=== PATIENT | female | born 1980 | race African-American/Black ===

== ENCOUNTER 2017-05-06 12:16 | Inpatient (IN) ==
[2017-05-06] MEDS ORDERED: hydrALAZINE 20 MG/1 ML VIAL ONE (13:11)
--- NOTE | 2017-05-06 13:12 | Emergency Department Note ---
Efrem Andre Gwan, am scribing for, and in the presence of, Jorden Munguia MD 12:29 . Nilda Andre James D, MD, personally performed the services described in this documentation, ascribed by Deborah Topete in my presence, and it is both accurate and complete 312 . 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 states had a nosebleed and nausea and light makes headache worse Mode of Arrival: Wheelchair Limitations: No Limitations Source: Patient, Old Records Reviewed, RN Notes Reviewed - History of Present Illness HPI Narrative: Patient is a 36 y/o female who presents to the ED with a c/o CARTER with an onset yesterday, worse today about 1 hour prior to admission. Patient stated that she has also had epistaxis, nausea and photophobia. Patient complains of her right occipital headache which feels like "pressure". Patient denies any upper or lower extremity numbness or weakness. Onset (ago): hour(s) Consistency: constant Severity: moderate Date of Last Menstrual Period: hyst Allergies/Adverse Reactions: Allergies Allergy/AdvReac Type Severity Reaction Status Date / Time Cefaclor [From Ceclor] Allergy Intermediate Swelling Verified 12/30/16 19:03 of Lip/Tongue/Throat ketorolac [From Toradol] Allergy Intermediate Swelling Verified 12/30/16 19:03 of Lip/Tongue/Throat nalbuphine [From Nubain] Allergy Intermediate Swelling Verified 12/30/16 19:03 of Lip/Tongue/Throat Penicillins Allergy Intermediate Swelling Verified 12/30/16 19:03 of Lip/Tongue/Throat Sulfa (Sulfonamide Allergy Intermediate Swelling Verified 12/30/16 19:03 Antibiotics) of Lip/Tongue/Throat Home Medications: Home Medications Medication Instructions Recorded Confirmed Type Aspirin EC Tab 81 mg PO DAILY 12/30/16 05/06/17 History Folic Acid Tab 1 mg PO DAILY 12/30/16 05/06/17 History Gabapentin 100 mg PO DAILY 12/30/16 05/06/17 History Insulin Regular [HumuLIN R] 20 unit SUBCUT DAILY 12/30/16 05/06/17 History Oxycodone HCl/Acetaminophen 1 each PO QID 12/30/16 05/06/17 History [Percocet 10-325 mg Tablet] ALPRAZolam [Xanax] 1 mg PO BID 05/06/17 05/06/17 History Clindamycin HCl [Clindamycin Cap] 300 mg PO TID 05/06/17 05/06/17 History Exenatide Microspheres [Bydureon 2 mg SUBCUT FR 05/06/17 05/06/17 History Pen] Furosemide Tab [Lasix Tab] 40 mg PO TID 05/06/17 05/06/17 History Hydrocodone/Acetaminophen [Lortab 1 each PO TID 05/06/17 05/06/17 History 10-325 mg Tablet] Insulin NPH Hum/Reg Insulin Hm 60 unit SUBCUT BID 05/06/17 05/06/17 History [NovoLIN 70/30] Iron,Carbonyl/Ascorbic Acid 1 each PO DAILY 05/06/17 05/06/17 History [Icar-C Tablet] Liraglutide [Victoza 2-Louis] 20 ml SUBCUT QID 05/06/17 05/06/17 History Lisdexamfetamine Dimesylate 30 mg PO DAILY 05/06/17 05/06/17 History [Vyvanse] Methylphenidate HCl [Ritalin] 20 mg PO BID 05/06/17 05/06/17 History Metoprolol Tartrate 50 mg PO BID 05/06/17 05/06/17 History Nitroglycerin 0.2 mg/Hr Patch 1 patch TRANSDERM DAILY 05/06/17 05/06/17 History [Nitro-Dur 0.2 mg/hr Patch] Phentermine HCl [Adipex-P] 37.5 mg PO DAILY 05/06/17 05/06/17 History amLODIPine [Norvasc] 10 mg PO DAILY 05/06/17 05/06/17 History Review of System - Review of System 12 point system: reviewed and no additional remarkable complaints except as stated - Review of System Eyes: Present: as per HPI, other (photophobia). Absent: discharge, pain Head/Ears/Nose/Throat: Present: see HPI, epistaxis. Absent: earache Gastrointestinal: Present: as per HPI, nausea. Absent: abdominal pain, diarrhea Neurological: Present: as per HPI, headache. Absent: weakness, confusion Medical,Surgical,& Family Hx - Medical History Cardio: History of: Hypertension Endocrine: History of: Diabetes Mellitus (IDDM) - Social History Smoking Status: Never smoker Frequency of Alcohol Use: None Type of Drug Use: None Exam Physical Examination: GENERAL: This is a well-nourished, well-developed female in no apparent distress. VITAL SIGNS: HEENT: Head is normocephalic and atraumatic. Pupils are equally round and reactive to light. Extraocular movement are intact. Oropharynx is benign with moist mucous membranes. NECK: Neck is soft and supple without tenderness. There are no masses. There is no lymphadenopathy. LUNGS: Lungs are clear to auscultation bilaterally. Chest rises symmetrically. There is no chest wall tenderness. CV: Heart is regular rate and rhythm without murmurs, rubs, or gallops. ABDOMEN: Abdomen is soft, non-tender to palpation. There are no abnormal masses palpated. There is no organomegaly. Bowel sounds are present and active. SKIN: Skin is warm and dry. No rash. EXTREMITIES: Patient has full range of motion without tenderness. There is no pedal edema. NEUROLOGIC: Awake, alert, and oriented x4. Cranial nerves II through XII are grossly intact. There are no motorsensory deficits. Vital Signs: Vital Signs Temperature 98.3 F 05/06/17 12:27 Pulse Rate 93 H 05/06/17 13:30 Respiratory Rate 16 05/06/17 13:30 Blood Pressure 189/102 05/06/17 13:30 O2 Sat by Pulse Oximetry 100 05/06/17 13:30 Results - Diagnostic Findings Procedure: CT: report reviewed by me (CT head: No acute intracranial lesion or hemorrhage.) Disposition Clinical Impression: Headache, Essential hypertension, Medical non-compliance Case discussed with: patient Condition: Stable
[2017-05-06] MEDS ORDERED: hydrALAZINE 20 MG/1 ML VIAL IV STA ×3 (13:27→14:56)
--- NOTE | 2017-05-06 13:40 | CT Report ---
CT head/brain wo con Indication: Headache Comparison: None. Technique: CT of the brain was performed without administration of intravenous contrast. The CT examination was performed using one or more of the following dose reduction techniques: Automatic exposure control, adjustment of the mA and kV according to patient size, use of acute or iterative reconstruction techniques. Findings: There is no evidence of acute intracranial hemorrhage, mass, or infarction. Ventricles appear within normal limits. The basal cisterns are patent. No significant abnormality is demonstrated to involve the posterior fossa or cerebellum. Orbits and globes demonstrate no evidence of significant pathology. The paranasal sinuses are clear. No significant abnormality is demonstrated to involve the mastoid air cells. The calvarium and overlying soft tissues demonstrate no evidence of acute pathology. Impression: 1. No CT evidence of acute intracranial pathology. 05/06/2017 1:37 PM PROCEDURE INTERPRETED AT [facility] DEPARTMENT OF RADIOLOGY Final Report Signed by: Dr. Carlos Christian
[2017-05-06] MEDS ORDERED: KETOROLAC 30 MG/1 ML VIAL ONE (14:38)
[2017-05-06] MEDS ORDERED: KETOROLAC 30 MG/1 ML VIAL IV STA (14:56)
[2017-05-06] MEDS ORDERED: LORazepam 2 MG/1 ML VIAL ONE (15:49)
[2017-05-06 16:37] LABS: Barbiturates Screen,Urine Negative (Negative); Benzodiazepines Screen,Urine Negative (Negative); Cannabinoid Screen,Urine Negative (Negative); Opiate Screen,Urine Negative (Negative); Phencyclidine Screen,Urine Negative (Negative)
--- NOTE | 2017-05-06 17:04 | Hospitalist History & Physical ---
Assessment and Plan (1) Essential hypertension Status: Acute Assessment and plan: Restart home medications. As needed antihypertensive agents. Current Visit: Yes (2) Headache Status: Acute Assessment and plan: Treat blood pressure. CT head negative. Give pt ibufopen. Current Visit: Yes (3) Medical non-compliance Status: Chronic Assessment and plan: Educate patient on importance of taking medications. Current Visit: Yes (4) Bipolar 1 disorder Status: Chronic Current Visit: Yes History of Present Illness Chief complaint: headache History of present illness: Ms. Canas is a 36 year old black female presented to the ED today with complaints of a headache. She states that the headache began 3 days ago and has progressively worsened. Patient states that the headache today came on suddenly. She reports "I felt like my eyes were about to pop out of my head". She also reports blood "shooting out" of her nose. Pt. states that this was witnessed by her . Pt. also reported nausea and vomiting. On examination , pt is tearful and reports social issues have her stressed. She points to the occipital area when asked where her head hurts. She reports the pain is 8/10. Pt. denies any other complaints at this time. Pt's case has been discussed with Dr. Mueller and Dr. Munguia. Pt. will be admitted to the hospitalist service for further evaluation and treatment. Home Medications Medication Instructions Recorded Confirmed Type Aspirin EC Tab 81 mg PO DAILY 12/30/16 05/06/17 History Folic Acid Tab 1 mg PO DAILY 12/30/16 05/06/17 History Gabapentin 100 mg PO DAILY 12/30/16 05/06/17 History Insulin Regular [HumuLIN R] 20 unit SUBCUT DAILY 12/30/16 05/06/17 History Oxycodone HCl/Acetaminophen 1 each PO QID 12/30/16 05/06/17 History [Percocet 10-325 mg Tablet] ALPRAZolam [Xanax] 1 mg PO BID 05/06/17 05/06/17 History Clindamycin HCl [Clindamycin Cap] 300 mg PO TID 05/06/17 05/06/17 History Exenatide Microspheres [Bydureon 2 mg SUBCUT FR 05/06/17 05/06/17 History Pen] Furosemide Tab [Lasix Tab] 40 mg PO TID 05/06/17 05/06/17 History Hydrocodone/Acetaminophen [Lortab 1 each PO TID 05/06/17 05/06/17 History 10-325 mg Tablet] Insulin NPH Hum/Reg Insulin Hm 60 unit SUBCUT BID 05/06/17 05/06/17 History [NovoLIN 70/30] Iron,Carbonyl/Ascorbic Acid 1 each PO DAILY 05/06/17 05/06/17 History [Icar-C Tablet] Liraglutide [Victoza 2-Louis] 20 ml SUBCUT QID 05/06/17 05/06/17 History Lisdexamfetamine Dimesylate 30 mg PO DAILY 05/06/17 05/06/17 History [Vyvanse] Methylphenidate HCl [Ritalin] 20 mg PO BID 05/06/17 05/06/17 History Metoprolol Tartrate 50 mg PO BID 05/06/17 05/06/17 History Nitroglycerin 0.2 mg/Hr Patch 1 patch TRANSDERM DAILY 05/06/17 05/06/17 History [Nitro-Dur 0.2 mg/hr Patch] Phentermine HCl [Adipex-P] 37.5 mg PO DAILY 05/06/17 05/06/17 History amLODIPine [Norvasc] 10 mg PO DAILY 05/06/17 05/06/17 History Allergies Allergy/AdvReac Type Severity Reaction Status Date / Time Cefaclor [From Ceclor] Allergy Intermediate Swelling Verified 12/30/16 19:03 of Lip/Tongue/Throat ketorolac [From Toradol] Allergy Intermediate Swelling Verified 12/30/16 19:03 of Lip/Tongue/Throat nalbuphine [From Nubain] Allergy Intermediate Swelling Verified 12/30/16 19:03 of Lip/Tongue/Throat Penicillins Allergy Intermediate Swelling Verified 12/30/16 19:03 of Lip/Tongue/Throat Sulfa (Sulfonamide Allergy Intermediate Swelling Verified 12/30/16 19:03 Antibiotics) of Lip/Tongue/Throat Medical,Surgical,& Family Hx - Medical History Cardio: History of: Hypertension Endocrine: History of: Diabetes Mellitus (IDDM) - Social History Smoking Status: Never smoker Frequency of Alcohol Use: None Type of Drug Use: None Marital Status: Lives With:: Parent Functional capacity: independent ambulation - Constitutional Constitutional: Absent: chills, fever(s) - EENT Eyes: Present: loss of vision Ears: Absent: decreased hearing Nose, mouth and throat: Present: epistaxis, headache(s) - Cardiovascular Cardiovascular: Absent: chest pain at rest, edema - Respiratory Respiratory: Absent: cough - Gastrointestinal Gastrointestinal: Absent: abdominal pain, nausea, vomiting - Genitourinary Genitourinary: Absent: difficulty urinating - Neurological Neurological: Absent: confusion, dizziness - Psychiatric Psychiatric: Present: anxiety, depression, difficulty concentrating Exam - Constitutional Vitals: Period Temp Pulse Resp BP Sys/Acevedo Pulse Ox Last 24 Hr 98.3 F-98.3 F 90-93 15-22 176-195/102-155 96-100 General appearance: no acute distress, morbidly obese, disheveled - Head Head exam: Present: normal inspection, normocephalic - Eye Eye exam: Present: EOMI. Absent: scleral icterus Pupils: Present: CAROLYNN - ENT ENT exam: Present: normal exam - Neck Neck exam: Present: normal inspection - Respiratory Respiratory exam: Present: clear to auscultation bilaterally. Absent: wheezes - Cardiovascular Cardiovascular exam: Present: tachycardia - GI/Abdominal GI/Abdominal exam: Present: normal bowel sounds, soft. Absent: tenderness - Extremities Exam Extremities exam: Present: normal capillary refill, full ROM. Absent: edema - Neurological Exam Neurological exam: Present: alert, oriented X3 - Psychiatric Psychiatric exam: Present: normal affect, normal mood - Skin Skin exam: Present: normal color, warm, dry Results - Labs CBC & BMP: 05/06/17 13:24 05/06/17 13:24 Lab Results: I have reviewed the past 24 hour labs
[2017-05-06 17:24] LABS: Basophils % 0.4 % (0.0-0.8); Eosinophils % 0.4 % (0.00-10.9); Hematocrit 41.4 VOL% (35.7-47.0); Hemoglobin 13.6 GM/DL (12.0-16.0); Immature Granulocytes % 0.4 %; Immature Granulocytes Absolute 0.04 #; Lymphocytes # 2.5 10*3/uL (1.4-4.0); Mean Corpuscular HGB Conc 32.9 GM/DL (32-36); Mean Corpuscular Hemoglobin 26 PG (27-34); Mean Corpuscular Volume 79.8 FL (87-102); Mean Platelet Volume 9.4 FL (9.6-12.0); Monocytes # 0.5 10*3/uL (0.11-0.8); Monocytes % 5.3 % (1.7-12.7); Neutrophils # 5.9 10*3/uL (1.4-7.4); Neutrophils % 65.5 % (38.7-73.9); Platelet Count 281 T/CUMM (130-400); Red Blood Count 5.19 MC/CUMM (3.8-5.5); Red Cell Distribution Width 13.3 % (9.3-17.3)
[2017-05-06 17:44] LABS: Calcium 8.7 MG/DL (8.5-10.1); Osmolality,Calculated 281.3 MOS/KG (273-304); Potassium 3.7 MMOL/L (3.5-5.1)
[2017-05-06] MEDS ORDERED: IBUPROFEN 800 MG TABLET ONE (18:14)
[2017-05-06] MEDS ORDERED: IBUPROFEN 800 MG TABLET PO STA (18:44)
[2017-05-06] MEDS ORDERED: LABETALOL 20 MG/4 ML SYRINGE IV PRN (19:00)
[2017-05-06] MEDS: METOPROLOL TARTRATE 50 MG TABLET PO SCH (20:04)
[2017-05-06] MEDS: ENOXAPARIN 40 MG/0.4 ML SYRINGE SUBCUT SCH (20:04)
[2017-05-07 05:23] LABS: Basophils # 0.1 10*3/uL (0.0-0.2); Basophils % 0.6 % (0.0-0.8); Eosinophils # 0.1 10*3/uL (0.0-0.87); Eosinophils % 0.7 % (0.00-10.9); Hematocrit 41.2 VOL% (35.7-47.0); Hemoglobin 13.5 GM/DL (12.0-16.0); Immature Granulocytes % 0.4 %; Immature Granulocytes Absolute 0.03 #; Lymphocytes # 2.1 10*3/uL (1.4-4.0); Lymphocytes % 24.7 % (21.3-54.2); Mean Corpuscular HGB Conc 32.8 GM/DL (32-36); Mean Corpuscular Hemoglobin 26 PG (27-34); Mean Corpuscular Volume 79.8 FL (87-102); Mean Platelet Volume 9.2 FL (9.6-12.0); Monocytes # 0.4 10*3/uL (0.11-0.8); Monocytes % 4.1 % (1.7-12.7); Neutrophils # 5.9 10*3/uL (1.4-7.4); Neutrophils % 69.5 % (38.7-73.9); Platelet Count 279 T/CUMM (130-400); Red Blood Count 5.16 MC/CUMM (3.8-5.5); Red Cell Distribution Width 13.4 % (9.3-17.3); White Blood Count 8.5 T/CUMM (4-12)
[2017-05-07 06:10] LABS: Calcium 8.4 MG/DL (8.5-10.1); Magnesium 2.6 MG/DL (1.8-2.4); Osmolality,Calculated 279.4 MOS/KG (273-304); Potassium 4.2 MMOL/L (3.5-5.1); Risk Ratio 3.48; Thyroid Stimulating Hormone 0.726 uIU/ml (0.358-3.74)
[2017-05-07] MEDS ORDERED: NIFEdipine 10 MG CAPSULE PO PRN (09:04)
[2017-05-07] MEDS ORDERED: HEPARIN LOCK FLUSH 500 UNIT/5 ML SYRINGE IV ONE (09:13)
[2017-05-07] MEDS: amLODIPine 10 MG TABLET PO SCH (09:20)
[2017-05-07] MEDS: FOLIC ACID 1 MG TABLET PO SCH (09:21)
[2017-05-07] MEDS: ASPIRIN EC 81 MG TABLET PO SCH (09:21)
[2017-05-07] MEDS: METOPROLOL TARTRATE 50 MG TABLET PO SCH ×2 (09:21→20:19)
[2017-05-07] MEDS: VYVANSE 30 MG PO SCH (09:22)
--- NOTE | 2017-05-07 13:39 | Hospitalist Progress Note ---
Assessment and Plan (1) Headache Status: Acute Assessment and plan: The patient continues observation for headache and hyperal pressure. Urine for metanephrines has been requested. We will treat the blood pressure as required with oral medications. Current Visit: Yes Qualifiers: Headache type: tension-type Headache chronicity pattern: acute headache Intractability: intractable Qualified Code(s): G44.201 - Tension-type headache , unspecified, intractable (2) Essential hypertension Status: Acute Current Visit: Yes (3) Bipolar 1 disorder Status: Chronic Current Visit: Yes Hospitalist: Subjective Interval history: This is a 36-year-old lady with history of bipolar disorder taking Ritalin. The patient arrives with complaints of headache and elevated blood pressure which shows blood pressure greater than 200/110. The patient also has some normal blood pressures. This raises the possibility of a pheochromocytoma. The patient is now being observed for blood pressure and we are going to start 24-hour urine collection to test for metanephrines. Is difficult to understand if the high blood pressure episodes because the patient to have headache or the other way around. Exam - Constitutional Vitals: Period Temp Pulse Resp BP Sys/Acevedo Pulse Ox Last 24 Hr 97.0 F-98.4 F 65-121 19-25 120-198/76-143 92-100 General appearance: mild distress - Respiratory Respiratory exam: Present: clear to auscultation bilaterally - Cardiovascular Cardiovascular exam: Present: regular rate and rhythm - GI/Abdominal GI/Abdominal exam: Present: normal bowel sounds Results - Labs CBC & BMP: 05/07/17 04:00 05/07/17 04:00 Lab Results: I have reviewed the past 24 hour labs
[2017-05-07] MEDS: PROMETHAZINE 25 MG/1 ML VIAL IM PRN (14:00)
[2017-05-07] MEDS: METHYLPHENIDATE 5 MG TABLET PO SCH ×2 (14:38→20:20)
[2017-05-07] MEDS: ONDANSETRON 4 MG/2 ML VIAL IV PRN (15:43)
[2017-05-07] MEDS: ENOXAPARIN 40 MG/0.4 ML SYRINGE SUBCUT SCH (20:21)
[2017-05-08 05:22] LABS: Basophils # 0.1 10*3/uL (0.0-0.2); Basophils % 0.8 % (0.0-0.8); Eosinophils # 0.1 10*3/uL (0.0-0.87); Eosinophils % 1.4 % (0.00-10.9); Hematocrit 38.2 VOL% (35.7-47.0); Hemoglobin 12.2 GM/DL (12.0-16.0); Immature Granulocytes % 0.7 %; Immature Granulocytes Absolute 0.05 #; Lymphocytes # 2.8 10*3/uL (1.4-4.0); Lymphocytes % 38.9 % (21.3-54.2); Mean Corpuscular HGB Conc 31.9 GM/DL (32-36); Mean Corpuscular Hemoglobin 26 PG (27-34); Mean Corpuscular Volume 81.3 FL (87-102); Mean Platelet Volume 9.6 FL (9.6-12.0); Monocytes # 0.4 10*3/uL (0.11-0.8); Monocytes % 4.8 % (1.7-12.7); Neutrophils # 3.9 10*3/uL (1.4-7.4); Neutrophils % 53.4 % (38.7-73.9); Platelet Count 269 T/CUMM (130-400); Red Cell Distribution Width 13.4 % (9.3-17.3); White Blood Count 7.3 T/CUMM (4-12)
[2017-05-08 05:59] LABS: Blood Urea Nitrogen 28 MG/DL (7-18); Calcium 8.3 MG/DL (8.5-10.1); Glucose 86 MG/DL (74-106); Magnesium 2.2 MG/DL (1.8-2.4); Osmolality,Calculated 285.3 MOS/KG (273-304); Potassium 4.1 MMOL/L (3.5-5.1); Sodium 141 MMOL/L (136-145); Troponin I Only < 0.015 NG/ML (0.00-0.045)
[2017-05-08] MEDS ORDERED: HEPARIN LOCK FLUSH 500 UNIT/5 ML SYRINGE IV ONE (08:37)
--- NOTE | 2017-05-08 08:59 | Physician Query Form ---
CLICK EDIT DOCUMENT TO SELECT QUERY ANSWER --> OK --> SIGN Nova Jenkins RN Clinical Coat Baster W) [phone] (f) [phone] [email or web address]: Make your selection(s) from the choices in EACH section by typing an "x" and enter comments in the comment section. Please use your independent medical judgment in providing your response. This request does not imply that any particular answer is desired or expected. CLINCAL INDICATORS: (Providers should not edit this section) Based on documentation of "acute essential hypertension. We are going to put her on her home meds and monitor her blood pressure". Pt. takes Norvasc as home medication. Blood pressure on admission of 195/122. Note: Hypertensive crises can present as hypertensive urgency or hypertensive emergency. Clarify which, if any of the following, is a more accurate diagnosis reflecting the type and acuity of the documented hypertension: TYPE: ( X) Hypertensive Urgency ( ) Hypertensive Emergency ( ) Uncontrolled chronic hypertension at baseline ( ) Other, please specify: ( ) Clinically unable to determine COMMENTS: Criteria Source - Up to Date (This topic last updated: Dec 06, 2015) HYPERTENSIVE URGENCY: Severe hypertension (usually a diastolic blood pressure above 120 mmHg) in asymptomatic patients is referred to as hypertensive urgency. There is no proven benefit from rapid reduction in blood pressure in asymptomatic patients who have no evidence of acute end-organ damage and are at little short-term risk. HYPERTENSIVE EMERGENCY: Severe hypertension (usually a diastolic blood pressure above 120 mmHg) with evidence of acute end-organ damage is defined as a hypertensive emergency. A hypertensive emergency can be life threatening and requires immediate treatment, usually with parenteral medications in a monitored setting. PLEASE ALSO DOCUMENT RESPONSE IN PROGRESS NOTES AND/OR DISCHARGE SUMMARY Use of terms such as suspected, likely, or probable (associated with a specific diagnosis that is being evaluated, monitored, or treated as if it exists) are acceptable and can be restated in the discharge summary if not ruled out. MTDD
[2017-05-08] MEDS: ONDANSETRON 4 MG/2 ML VIAL IV PRN ×3 (09:17→16:51)
[2017-05-08] MEDS: METOPROLOL TARTRATE 50 MG TABLET PO SCH ×2 (09:23→21:00)
[2017-05-08] MEDS: FOLIC ACID 1 MG TABLET PO SCH (09:23)
[2017-05-08] MEDS: amLODIPine 10 MG TABLET PO SCH (09:23)
[2017-05-08] MEDS: ASPIRIN EC 81 MG TABLET PO SCH (09:23)
[2017-05-08] MEDS: METHYLPHENIDATE 5 MG TABLET PO SCH ×2 (09:33→20:59)
--- NOTE | 2017-05-08 19:13 | Hospitalist Progress Note ---
Hospitalist: Subjective Interval history: Patient has some headache today. Exam - Constitutional Vitals: Period Temp Pulse Resp BP Sys/Acevedo Pulse Ox Last 24 Hr 95.6 F-97.6 F 49-66 12-20 98-145/53-89 96-98 Exam: General: No Acute Distress HEENT: Normocephalic, atraumatic, Extra ocular movements intact Neck: Supple, No JVD Chest: Clear to auscultation B/L CV: S1 + S2 audible without murmur, gallop or rub Abd: soft, NT, Non-distended, BS + Ext: No edema Skin: No purpura, bruising or rash Rheumatologic: No Joint deformities Neurologic: Strength 5/5 all extremities, no gross sensory deficits Results - Labs CBC & BMP: 05/08/17 03:40 05/08/17 03:40 - Impressions Assessment and Plan: (1) Headache Status: Acute Assessment and plan: Check MRI of the brain due to persistent headache Current Visit: Yes Qualifiers: Headache type: tension-type Headache chronicity pattern: acute headache Intractability: intractable Qualified Code(s): G44.201 - Tension-type headache , unspecified, intractable (2) Essential hypertension Status: Acute Current Visit: Yes 24 hour urine collection for metanephrines was completed on May 08, will follow up on the results (3) Bipolar 1 disorder Status: Chronic Current Visit: Yes
[2017-05-08] MEDS: VYVANSE 30 MG PO SCH (19:35)
[2017-05-08] MEDS: ENOXAPARIN 40 MG/0.4 ML SYRINGE SUBCUT SCH (21:02)
[2017-05-08] MEDS: PROMETHAZINE 25 MG/1 ML VIAL IM PRN (23:48)
[2017-05-09] MEDS: METOPROLOL TARTRATE 50 MG TABLET PO SCH ×2 (09:00→20:47)
[2017-05-09] MEDS: ASPIRIN EC 81 MG TABLET PO SCH (09:00)
[2017-05-09] MEDS: amLODIPine 10 MG TABLET PO SCH (09:00)
[2017-05-09] MEDS: FOLIC ACID 1 MG TABLET PO SCH (09:00)
[2017-05-09] MEDS: VYVANSE 30 MG PO SCH (09:01)
[2017-05-09] MEDS: METHYLPHENIDATE 5 MG TABLET PO SCH ×2 (09:01→20:47)
--- NOTE | 2017-05-09 11:12 | Magnetic Resonance Report ---
Exam: MR head/brain w and wo con Date: 05/09/2017 5:07 PM Comparison: CT brain 05/06/2017 Indication: Persistent headache history of seizures Technical: 1.5 Yanelis magnet Axial T1 pre-and postcontrast, ADC, DWI, FLAIR, gradient echo and FSE T2 Sagittal T1 precontrast, Coronal postcontrast T1 Contrast: 20 cc Dotarem Findings: Exam reveals no acute ADC/ diffusion imaging abnormality. The brainstem exhibit normal signal characteristics. Slight low-lying cerebellar tonsil suggest minimal cerebellar ectopia. No other abnormalities in the cerebellum noted. The cerebral hemispheres exhibit normal signal characteristics. The corpus callosum is unremarkable. No contrast enhancing lesions are present. The seventh and eighth cranial nerves and cerebral pontine angles are intact. The pituitary gland, infundibulum and optic chiasm are intact. The paranasal sinuses exhibit minimal inflammation in the ethmoid sinuses the maxillary sphenoid frontal sinuses are unremarkable.. The mastoid sinuses are unremarkable. The globes and intra-and extraconal spaces are unremarkable. Impression: 1. Findings suggest minimal cerebellar ectopia. Question Chiari I 2. No obvious syrinx or myomalacia change in the proximal cord 2. No acute hemorrhage, infarction or mass effect 3. Minimal inflammation ethmoid air cells. PROCEDURE INTERPRETED AT [facility] DEPARTMENT OF RADIOLOGY Final Report Signed by: Dr. Jose Hammond
[2017-05-09] MEDS: PROMETHAZINE 25 MG/1 ML VIAL IM PRN (15:00)
[2017-05-09] MEDS: HEPARIN LOCK FLUSH 500 UNIT/5 ML SYRINGE IV SCH (16:25)
--- NOTE | 2017-05-09 16:55 | Hospitalist Progress Note ---
Hospitalist: Subjective Interval history: Has some headache but better than yesterday. Exam - Constitutional Vitals: Period Temp Pulse Resp BP Sys/Acevedo Pulse Ox Last 24 Hr 96.2 F-98 F 51-70 16-20 97-134/53-76 95-99 Exam: General: No Acute Distress HEENT: Normocephalic, atraumatic, Extra ocular movements intact Neck: Supple, No JVD Chest: Clear to auscultation B/L CV: S1 + S2 audible without murmur, gallop or rub Abd: soft, NT, Non-distended, BS + Ext: No edema Skin: No purpura, bruising or rash Rheumatologic: No Joint deformities Neurologic: Strength 5/5 all extremities, no gross sensory deficits Results - Labs CBC & BMP: 05/08/17 03:40 05/08/17 03:40 - Impressions Assessment and Plan: (1) Headache Status: Acute Assessment and plan: MRI of the brain not showing any gross abnormalities to explain her headache. This is most likely tension type headache, however it is improving with current treatment continue. Current Visit: Yes Qualifiers: Headache type: tension-type Headache chronicity pattern: acute headache Intractability: intractable Qualified Code(s): G44.201 - Tension-type headache , unspecified, intractable (2) Essential hypertension Status: Acute Current Visit: Yes 24 hour urine collection for metanephrines was completed on May 08, will follow up on the results (3) Bipolar 1 disorder Status: Chronic Current Visit: Yes
[2017-05-09] MEDS: ENOXAPARIN 40 MG/0.4 ML SYRINGE SUBCUT SCH (20:47)
[2017-05-09] MEDS: ONDANSETRON 4 MG/2 ML VIAL IV PRN (20:48)
[2017-05-10] MEDS: METHYLPHENIDATE 5 MG TABLET PO SCH (08:48)
[2017-05-10] MEDS: amLODIPine 10 MG TABLET PO SCH (08:49)
[2017-05-10] MEDS: HEPARIN LOCK FLUSH 500 UNIT/5 ML SYRINGE IV SCH (08:49)
[2017-05-10] MEDS: FOLIC ACID 1 MG TABLET PO SCH (08:49)
[2017-05-10] MEDS: ASPIRIN EC 81 MG TABLET PO SCH (08:49)
[2017-05-10] MEDS: METOPROLOL TARTRATE 50 MG TABLET PO SCH (08:49)
[2017-05-10] MEDS: VYVANSE 30 MG PO SCH (08:52)
--- NOTE | 2017-05-10 11:04 | Discharge Summary ---
Hospital Course - Hospital Course Hospital Course: 36 year old black female presented to the ED with a headache, epistaxis and uncontrolled hypertension. Patient's stated that whenever her blood pressure goes up she usually experiences an epistaxis and that resolves when her blood pressure settles down. She stated that the headache began 3 days ago prior to admission and has progressively worsened. She also was under a lot of stress due to several social issues worsening her headache and blood pressure. She was admitted to the hospital service. Neurology was consulted but were not available due to being out of town. MRI of the brain was done and was grossly did not show any bleed, mass or stroke. Headache started over time and [place] did help the headache. States that her headache is much better and is requesting to be discharged home. She did have 24 hour urine done to rule out pheochromocytoma due to uncontrolled hypertension. Since it is a send out test , it could take several days to come back. I did advise her to contact her primary care physician on next appointment and request can be made then to [facility] department to fax over her results to her primary care physician, who will further advise her about further treatment plan; patient is agreeable to this plan. She is now being discharged home with improvement stable condition she was advised to return to ER for any worsening symptoms. Diagnosis - Discharge Diagnosis (1) Headache Status: Resolved (2) Essential hypertension Status: Resolved Discharge Plan - Discharge Data Condition at Discharge: Stable Discharge Diet: diabetic diet, low salt diet Activity: resume usual activities as tolerated Hygiene: no restrictions Weight Bearing at Discharge: full weight bearing Driving: no restrictions Contact your physician if you experience:: fever over 101, Nausea/Vomiting, Bleeding, pain uncontrolled by pain medications - Discharge Medications New NIFEdipine CAP [Procardia] 10 mg PO Q4H PRN #30 capsule PRN Reason: Hypertension Continue Aspirin EC Tab 81 mg PO DAILY Folic Acid Tab 1 mg PO DAILY Gabapentin 100 mg PO DAILY Oxycodone HCl/Acetaminophen [Percocet 10-325 mg Tablet] 1 each PO QID Insulin Regular [HumuLIN R] 20 unit SUBCUT DAILY amLODIPine [Norvasc] 10 mg PO DAILY Metoprolol Tartrate 50 mg PO BID Furosemide Tab [Lasix Tab] 40 mg PO TID Liraglutide [Victoza 2-Louis] 20 ml SUBCUT QID Exenatide Microspheres [Bydureon Pen] 2 mg SUBCUT FR Clindamycin HCl [Clindamycin Cap] 300 mg PO TID Methylphenidate HCl [Ritalin] 20 mg PO BID Phentermine HCl [Adipex-P] 37.5 mg PO DAILY ALPRAZolam [Xanax] 1 mg PO BID Lisdexamfetamine Dimesylate [Vyvanse] 30 mg PO DAILY Hydrocodone/Acetaminophen [Lortab 10-325 mg Tablet] 1 each PO TID #30 Insulin NPH Hum/Reg Insulin Hm [NovoLIN 70/30] 60 unit SUBCUT BID #1 Iron,Carbonyl/Ascorbic Acid [Icar-C Tablet] 1 each PO DAILY Nitroglycerin 0.2 mg/Hr Patch [Nitro-Dur 0.2 mg/hr Patch] 1 patch TRANSDERM DAILY - Follow Up or Referral - Forms/Instructions Exam - Constitutional Vitals: Period Temp Pulse Resp BP Sys/Acevedo Pulse Ox Last 24 Hr 96.5 F-98 F 51-70 16-22 109-134/67-75 96-98 Exam: General: No Acute Distress HEENT: Normocephalic, atraumatic, Extra ocular movements intact Neck: Supple, No JVD Chest: Clear to auscultation B/L CV: S1 + S2 audible without murmur, gallop or rub Abd: soft, NT, Non-distended, BS + Ext: No edema Skin: No purpura, bruising or rash Rheumatologic: No Joint deformities Neurologic: Strength 5/5 all extremities, no gross sensory deficits Discharge Results Procedures and tests throughout hospitalization: Pending Orders 05/07/17 14:48 Metanephrines, Fractionated,24 Routine DS: Provider Date of admission: 05/06/17 16:28 Primary care physician: . No PCP Attending physician on admission: Alex Mueller MD Consults: 05/08/17 15:40 Consult to Physician [CONS] Routine Comment: headache, blurry vision Consulting Provider: Dago Calzada When should Consulting Provider be notified: Now Discharging clinician: Lexus Shaw MD
[2017-05-10 11:55] VITALS: BP 118/58
[2017-05-13 18:31] LABS: Normetanephrine, U 297 mcg/24 h; Total Metanephrines, U 387 mcg/24 h; Urine Volume 650 mL
== END 2017-05-10 12:28 | disposition home or self-care (01) | DRG 54 ==
LOC: N.ED 12:16 → SUATTDRO 16:28 → N.EDINP 16:28 → N.4E 18:30
PROVIDERS: ADMIT Internal Medicine; ATTEND Hospitalist